=== PATIENT | male | born 1955 | race Caucasian/White ===

== ENCOUNTER 2019-12-01 16:58 | Inpatient (IN) | payer OTHER ==
[~2019-12-01] VITALS: Ht 172.7 cm; Wt 106.9 kg
[~2019-12-01 16:58] MED LIST changes: -METF500 PO; -METFORMIN HCL500 M2 PO; -PIOGLITAZONE HC15 MG PO; -ROSUVASTATIN CA10 MG PO; -TRULICITY1.5 MG/0.5 SQ
[2019-12-01] MEDS ORDERED: PIOGLITAZONE HC15 MG PO (19:04)
[2019-12-01] MEDS ORDERED: ROSUVASTATIN CA10 MG PO (19:04)
[2019-12-01] MEDS ORDERED: TRULICITY1.5 MG/0.5 SQ (19:05)
[2019-12-01] MEDS ORDERED: METF500 PO (19:06)
[2019-12-01] MEDS ORDERED: METFORMIN HCL500 M2 PO (19:07)
[2019-12-02 05:01] LABS: Hematocrit 39.8 % (37.0-53.0); Mean Corpuscular HGB 29.8 pg (26.0-34.0); Mean Corpuscular HGB Conc 32.7 g/dL (31.5-36.5); Mean Corpuscular Volume 91 fL (80-100); Mean Platelet Volume 11.6 fL (9.1-12.4); Platelet Count 141 K/mm3 (150-400); RDW Coefficient Variation 13.1 % (11.7-14.2); RDW Standard Deviation 43.4 fL (35.1-46.3); Red Blood Cell Count 4.36 M/mm3 (4.30-5.90); White Blood Cell Count 8.91 K/mm3 (4.00-11.30)
[2019-12-02 05:12] LABS: Alanine Aminotransfer (ALT/SGP 304 U/L (12-78); Albumin, Blood 2.5 g/dL (3.4-5.0); Albumin/Globulin Ratio 0.7 (0.8-1.8); Alk Phos 368 U/L (50-136); Anion Gap 8 mmol/L (6-16); Aspartate Aminotrans (AST/SGOT 132 U/L (12-37); Bilirubin, Total 3.6 mg/dL (0.1-1.0); Blood Urea Nitrogen 25 mg/dL (8-24); Bun/Creatinine Ratio 28.2 (12.0-20.0); CO2, Blood 25 mmol/L (21-32); Calcium, Blood 8.1 mg/dL (8.5-10.1); Chloride, Blood 105 mmol/L (98-108); Creatinine, Blood 0.89 mg/dL (0.60-1.20); Globulin, Blood 3.8 g/dL (2.2-4.0); Glomerular Filtration Rate >60 (60-); Glucose, Blood 209 mg/dL (70-99); Potassium, Blood 3.8 mmol/L (3.5-5.5); Sodium, Blood 138 mmol/L (136-145); Total Protein, Blood 6.3 g/dL (6.4-8.2)
--- NOTE | 2019-12-02 06:15 | NUR ---
SHIFT SUMMARY: DANIELA HAS RESTED INTERMITTENTLY SINCE HIS ADMISSION TO THE UNIT. HE DOES REPORT THAT HE HAS SLEEP APNEA AND USES A CPAP AT HOME. HE IS ALERT AND ORIENTED, ABLE TO MAKE HIS NEEDS KNOWN. HE REPORTS NOT HAVING EATEN FOR THE LAST TWO DAYS BUT DID DRINK SOME WATER. HE HAS BEEN NPO SINCE ADMISSION, MOUTH SWABS PROVIDED. IV TO RAC PATENT. , FAUSTINA, WILL RETURN IN THE MORNING. DANIELA IS PLEASANT AND COOPERATIVE. PAIN CONTROLLED AT THIS TIME. DANIELA IS INDEPENDENT IN THE ROOM BUT WAS ENCOURAGED TO CALL IF HE FELT AT ALL UNSTEADY OR REQUIRED ASSISTANCE WITH HIS IV POLE. HE REPORTS THAT HIS BLOOD SUGARS AT HOME RANGE FROM APPROX 140-180. HE IS RESTING COMFORTABLY IN BED WITH HIS CALL LIGHT IN REACH. WILL REPORT TO DAY SHIFT RN.
--- NOTE | 2019-12-02 10:34 | NUR ---
IMAGING: PT RETURNED FROM IMAGING TO ROOM. MRCP COMPLETED. WILL MONITOR RESULTS.
--- NOTE | 2019-12-02 11:34 | NUR ---
SURGERY: PT TO THE OR AT THIS TIME. AT BEDSIDE. SURGICAL PKT PLACED ON CHART. 18G IN PLACE. WILL MONITOR WHEN RETURNS TO ROOM POST OP.
--- NOTE | 2019-12-02 12:12 | NUR ---
LATE ENTY 1129 PT INTO [facility]. TRANSFERED VIA BED FROM [facility]. VSS. ROOM AIR. AT BEDSIDE. PT CONFIRMS NPO STATUS. Lungs clear T/O to Auscultation. History, Chart, Medications and Allergies reviewed before start of procedure.
--- NOTE | 2019-12-02 20:04 | NUR ---
PT HAD LAP BING THIS AFTERNOON. PT NAUSEATED POST OP BUT RESOLVING NOW. JOLANTA SIPS OF CLEARS. PAIN MANAGED WITH PRN FENTANYL. PT WALKING HALLWAYS OFTEN. NO FLATUS YET. VOIDING WELL. ANIL OUTPUT CHARTED. ABD INCISIONS X4 CDI. PT WEANED FROM O2 POST OP. PT USES CALL LIGHT APPROPRIATELY NEEDED.
--- NOTE | 2019-12-03 00:32 | NUR ---
CALLED HOSPITALIST CRISTA REGARDING CBG [id number] WITH COVERAGE A/C ONLY.NO INSULIN ORDERED. CBGS CHANGED TO A/C ONLY PER ORDER RECEIVED.
[2019-12-03 04:15] LABS: BASOPHILS ABSOLUTE AUTO 0.01 K/mm3 (0.00-0.23); BASOPHILS PERCENT AUTO 0 % (0-2); EOSINOPHILS PERCENT AUTO 0 % (0-6); Hematocrit 39.7 % (37.0-53.0); IMMATURE GRAN ABSOLUTE AUTO 0.06 K/mm3 (0.00-0.10); IMMATURE GRAN PERCENT AUTO 1 % (0-1); LYMPHOCYTES PERCENT AUTO 5 % (21-46); MONOCYTES ABSOLUTE AUTO 0.48 K/mm3 (0.16-1.47); MONOCYTES PERCENT AUTO 5 % (4-13); Mean Corpuscular HGB 30.1 pg (26.0-34.0); Mean Corpuscular HGB Conc 32.7 g/dL (31.5-36.5); Mean Corpuscular Volume 92 fL (80-100); Mean Platelet Volume 10.8 fL (9.1-12.4); NEUTROPHILS PERCENT AUTO 90 % (41-73); Platelet Count 207 K/mm3 (150-400); RDW Coefficient Variation 13.1 % (11.7-14.2); RDW Standard Deviation 43.9 fL (35.1-46.3); Red Blood Cell Count 4.32 M/mm3 (4.30-5.90); White Blood Cell Count 9.95 K/mm3 (4.00-11.30)
[2019-12-03 04:36] LABS: Alanine Aminotransfer (ALT/SGP 246 U/L (12-78); Albumin, Blood 2.7 g/dL (3.4-5.0); Albumin/Globulin Ratio 0.7 (0.8-1.8); Alk Phos 371 U/L (50-136); Anion Gap 13 mmol/L (6-16); Aspartate Aminotrans (AST/SGOT 79 U/L (12-37); Bilirubin, Total 1.4 mg/dL (0.1-1.0); Blood Urea Nitrogen 20 mg/dL (8-24); Bun/Creatinine Ratio 27.8 (12.0-20.0); CO2, Blood 19 mmol/L (21-32); Calcium, Blood 8.5 mg/dL (8.5-10.1); Chloride, Blood 106 mmol/L (98-108); Creatinine, Blood 0.72 mg/dL (0.60-1.20); Globulin, Blood 4.1 g/dL (2.2-4.0); Glomerular Filtration Rate >60 (60-); Glucose, Blood 276 mg/dL (70-99); Potassium, Blood 4.1 mmol/L (3.5-5.5); Sodium, Blood 138 mmol/L (136-145); Total Protein, Blood 6.8 g/dL (6.4-8.2)
--- NOTE | 2019-12-03 18:50 | NUR ---
SUMMARY: NO ACUTE CHANGE TODAY. VSS, A/O. INSULIN SS ADJUSTED TO HSS, SEE CBG'S. PT HAS MINIMAL PAIN, MEDICATED PER EMAR. ABLE TO SHOWER AND TAKE FREQUENT WALKS. SURGICAL SITES WNL. PT DENIES PASSING GAS, BOWEL TONES ARE ACTIVE. TOLERATING CLEAR LIQ DIET. NO ACUTE SAFETY CONCERNS AT THIS TIME. WILL CTM AND REPORT TO BRI EDWARD.
[2019-12-04 04:45] LABS: BASOPHILS ABSOLUTE AUTO 0.04 K/mm3 (0.00-0.23); BASOPHILS PERCENT AUTO 1 % (0-2); EOSINOPHILS ABSOLUTE AUTO 0.02 K/mm3 (0.00-0.68); EOSINOPHILS PERCENT AUTO 0 % (0-6); Hematocrit 36.3 % (37.0-53.0); Hemoglobin 11.8 g/dL (13.5-17.5); IMMATURE GRAN ABSOLUTE AUTO 0.07 K/mm3 (0.00-0.10); IMMATURE GRAN PERCENT AUTO 1 % (0-1); LYMPHOCYTES ABSOLUTE AUTO 1.15 K/mm3 (0.84-5.20); LYMPHOCYTES PERCENT AUTO 14 % (21-46); MONOCYTES ABSOLUTE AUTO 0.69 K/mm3 (0.16-1.47); MONOCYTES PERCENT AUTO 8 % (4-13); Mean Corpuscular HGB 30.1 pg (26.0-34.0); Mean Corpuscular HGB Conc 32.5 g/dL (31.5-36.5); Mean Corpuscular Volume 93 fL (80-100); Mean Platelet Volume 10.9 fL (9.1-12.4); NEUTROPHILS ABSOLUTE AUTO 6.22 K/mm3 (1.96-9.15); NEUTROPHILS PERCENT AUTO 76 % (41-73); Platelet Count 199 K/mm3 (150-400); RDW Coefficient Variation 13.2 % (11.7-14.2); RDW Standard Deviation 45.2 fL (35.1-46.3); Red Blood Cell Count 3.92 M/mm3 (4.30-5.90); White Blood Cell Count 8.19 K/mm3 (4.00-11.30)
[2019-12-04 05:05] LABS: Alanine Aminotransfer (ALT/SGP 139 U/L (12-78); Albumin, Blood 2.3 g/dL (3.4-5.0); Albumin/Globulin Ratio 0.6 (0.8-1.8); Alk Phos 260 U/L (50-136); Anion Gap 5 mmol/L (6-16); Aspartate Aminotrans (AST/SGOT 26 U/L (12-37); Blood Urea Nitrogen 15 mg/dL (8-24); Bun/Creatinine Ratio 21.4 (12.0-20.0); CO2, Blood 27 mmol/L (21-32); Chloride, Blood 106 mmol/L (98-108); Globulin, Blood 3.6 g/dL (2.2-4.0); Glomerular Filtration Rate >60 (60-); Glucose, Blood 251 mg/dL (70-99); Potassium, Blood 3.4 mmol/L (3.5-5.5); Sodium, Blood 138 mmol/L (136-145); Total Protein, Blood 5.9 g/dL (6.4-8.2)
--- NOTE | 2019-12-04 08:36 | NUR ---
SUMMARY PT REPORTED HAVING FORMED BM AT SHIFT CHANGE LAST NIGHT. TOLERATING PO FLUIDS AND MEDS WITHOUT C/O NAUSEA. IV IS SL. PT VOIDING BEST.
--- NOTE | 2019-12-04 09:02 | NUR ---
AMBULATING IN ROOM, REPORTS PAIN IS TOLERABLE AT 3/10 AT THIS TIME, DENIES ANY NAUSEA OR ABD DISCOMFORT AT THIS TIME, STATES TOLERATING CLEAR LIQUIDS WELL THIS AM, ANIL DRAIN NOTED W/ SEROUSANGUINOUS DRAINAGE, CONT. TO MONITOR FOR ANY CHANGES, ENCOURAGE TO AMBULATE IN HALLS.
--- NOTE | 2019-12-04 18:14 | NUR ---
SUMMARY OOB TO CHAIR, AMBULATED X3 DOWN THE HALLS, TOLERATED WELL, REPORTS TOLERATING DIET FAIRLY WELL, DENIES ANY NAUSEA, CONT. TO HAVE MILD ABD PAIN, RATES PAIN AT 2-3/10, MEDICATED FOR PAIN X1 TODAY, PASSING FLATUS, NO ACUTE CHANGES THIS SHIFT.
--- NOTE | 2019-12-05 05:35 | NUR ---
SUMMARY PT REPORTS ADEQUATE PAIN CONTROL. AMBULATORY. VOIDS DK BEST URINE. ENC INCREASE PO H2O INTAKE.HAS HAD BMS.
[2019-12-05] MEDS ORDERED: Norco 5-325 Ta1 EACH PO (12:34)
[2019-12-05] MEDS ORDERED: Augmentin 875-1 EACH PO (13:00)
[2019-12-05] MEDS ORDERED: METR500 PO (13:01)
--- NOTE | 2019-12-05 13:14 | NUR ---
DISCHARGE PT EDUCATED ON AND RECEIVED PRINTED DISCHARGE INSTRUCTIONS AND VERBALIZED AN UNDERSTANDING. IV DC'D. HARD RX FOR NORCO GIVEN TO PT. ABX FAXED TO [facility] PER REQUEST. PT WAITING FOR SPOUSE TO RETURN TO GO HOME.
--- NOTE | 2019-12-06 07:34 | NUR ---
12/06/19 0734 Nuvia Schumacher VERIFICATIONS: EDIT CHART.
== END 2019-12-05 13:50 | disposition home or self-care (01) | DRG 419 ==
LOC: ER 16:58 → SURS 22:59
PROVIDERS: Internal Medicine; Surgery; ADMIT Internal Medicine
PROC: BF03YZZ Plain Radiography of Gallbladder and Bile Ducts using Other Contrast (ICD-10-PCS; 2019-12-02)
PROC: 0FT44ZZ Resection of Gallbladder, Percutaneous Endoscopic Approach (ICD-10-PCS; principal; 2019-12-02 11:30)
DX: K81.0 Acute cholecystitis (principal); E78.5 Hyperlipidemia, unspecified; E87.6 Hypokalemia; E11.22 Type 2 diabetes mellitus with diabetic chronic kidney disease; E11.65 Type 2 diabetes mellitus with hyperglycemia; N18.3 Chronic kidney disease, stage 3 (moderate); I12.9 Hypertensive chronic kidney disease with stage 1 through stage 4 chronic kidney disease, or unspecified chronic kidney disease; G47.33 Obstructive sleep apnea (adult) (pediatric); E66.9 Obesity, unspecified; Z68.35 Body mass index [BMI] 35.0-35.9, adult; Z79.84 Long term (current) use of oral hypoglycemic drugs
CPT/HCPCS: 36415; 74018; 74181; 74300; 80053; 82947; 85025; 85027; 88304; 96361; 96365; 99284-25; A9270-GY; C1729; J0696; J1100; J1610; J1885; J2250; J2405; J2543; J2704; J2765; J3010; J7030; J7120

== ENCOUNTER → 2019-12-01 | Outpatient (CLI) | payer OTHER ==
[~2019-12-01] MED LIST: GLIP5 PO; METF500 PO; METFORMIN HCL500 M2 PO; PIOGLITAZONE HC15 MG PO; Percocet 5-3251 EACH PO; ROSUVASTATIN CA10 MG PO; TRULICITY1.5 MG/0.5 SQ
[2019-12-01 13:37] LABS: BASOPHILS ABSOLUTE AUTO 0.04 K/mm3 (0.00-0.23); BASOPHILS PERCENT AUTO 0 % (0-2); EOSINOPHILS ABSOLUTE AUTO 0.03 K/mm3 (0.00-0.68); EOSINOPHILS PERCENT AUTO 0 % (0-6); Hematocrit 39.5 % (37.0-53.0); Hemoglobin 13.3 g/dL (13.5-17.5); IMMATURE GRAN ABSOLUTE AUTO 0.14 K/mm3 (0.00-0.10); IMMATURE GRAN PERCENT AUTO 1 % (0-1); LYMPHOCYTES ABSOLUTE AUTO 0.58 K/mm3 (0.84-5.20); LYMPHOCYTES PERCENT AUTO 4 % (21-46); MONOCYTES ABSOLUTE AUTO 0.87 K/mm3 (0.16-1.47); MONOCYTES PERCENT AUTO 7 % (4-13); Mean Corpuscular HGB 30.4 pg (26.0-34.0); Mean Corpuscular HGB Conc 33.7 g/dL (31.5-36.5); Mean Corpuscular Volume 90 fL (80-100); Mean Platelet Volume 11.2 fL (9.1-12.4); NEUTROPHILS ABSOLUTE AUTO 11.75 K/mm3 (1.96-9.15); NEUTROPHILS PERCENT AUTO 88 % (41-73); Platelet Count 182 K/mm3 (150-400); RDW Coefficient Variation 13.1 % (11.7-14.2); RDW Standard Deviation 43.5 fL (35.1-46.3); Red Blood Cell Count 4.37 M/mm3 (4.30-5.90); White Blood Cell Count 13.41 K/mm3 (4.00-11.30)
[2019-12-01 13:55] LABS: Alanine Aminotransfer (ALT/SGP 442 U/L (12-78); Albumin, Blood 2.8 g/dL (3.4-5.0); Albumin/Globulin Ratio 0.6 (0.8-1.8); Alk Phos 441 U/L (40-126); Anion Gap 13 mmol/L (6-16); Aspartate Aminotrans (AST/SGOT 254 U/L (12-37); Bilirubin, Total 6.7 mg/dL (0.1-1.0); Blood Urea Nitrogen 30 mg/dL (8-24); Bun/Creatinine Ratio 18.6 (12.0-20.0); CO2, Blood 25 mmol/L (21-32); Calcium, Blood 8.6 mg/dL (8.5-10.1); Chloride, Blood 95 mmol/L (98-108); Creatinine, Blood 1.61 mg/dL (0.60-1.20); Globulin, Blood 4.4 g/dL (2.2-4.0); Glomerular Filtration Rate 43 (60-); Glucose, Blood 353 mg/dL (70-99); Sodium, Blood 133 mmol/L (136-145); Total Protein, Blood 7.2 g/dL (6.4-8.2)
[2019-12-01 14:08] LABS: Troponin I <0.017 ng/mL (0.000-0.040)
== END | disposition home or self-care (01) ==
LOC: LAB EV 13:31 → LAB SHORT 13:31
PROVIDERS: Physician Assistant
DX: R10.13 Epigastric pain (principal)
CPT/HCPCS: 80053; 82248; 83690; 84484; 85025

== ENCOUNTER 2023-01-22 10:13 | Day surgery (SDC) | payer MEDICARE, OTHER ==
[~2023-01-22] VITALS: Ht 172.7 cm; Wt 110.7 kg
[~2023-01-22 10:13] MED LIST changes: +Augmentin 875-1 EACH PO; +INSUGL100V SC; +METF500 PO; +METFORMIN HCL500 M2 PO; +METR500 PO; +NOVOLOG FL100 UNIT/3 SQ; +Norco 5-325 Ta1 EACH PO; +PIOGLITAZONE HC15 MG PO; +ROSUVASTATIN CA10 MG PO; +TRULICITY1.5 MG/0.5 SQ
--- NOTE | 2023-01-22 10:30 | NUR ---
History, Chart, Medications and Allergies reviewed before start of procedure.Patient confirms NPO status and agrees with scheduled surgery. Pre-Op teaching done. Pt verbalizes understanding. Patient States Post-Procedure ride home has been arranged.
--- NOTE | 2023-01-22 10:54 | NUR ---
Ambulatory in Day Surgery History, Chart, Medications and Allergies reviewed before start of procedure.Patient confirms NPO status and agrees with scheduled surgery. Lungs clear T/O to Auscultation.Patient states colon prep results clear. Patient States Post-Procedure ride home has been arranged WITH
--- NOTE | 2023-01-22 12:11 | NUR ---
01/22/23 1211 Apoorva Grover History, Chart, Medications and Allergies reviewed before start of procedure. DR WARD PROVIDING ANESTHESIA, SEE RECORDS
--- NOTE | 2023-01-22 12:49 | NUR ---
Patient up to Ambulate independently. Gait steady. Discharge instructions reviewed with patient. Patient verbalizes understanding. Copy given to patient to take home. Discharged via wheelchair to private car for ride home [facility] .
== END 2023-01-22 12:51 | disposition home or self-care (01) ==
LOC: ORSCMMR 10:13 → ORD 11:30 → ORSCMMR 12:51
PROVIDERS: Internal Medicine Gastroenterology
PROC: 0DBM8ZX Excision of Descending Colon, Via Natural or Artificial Opening Endoscopic, Diagnostic (ICD-10-PCS; principal; 2023-01-22 11:30)
PROC: 0DBH8ZX Excision of Cecum, Via Natural or Artificial Opening Endoscopic, Diagnostic (ICD-10-PCS; principal; 2023-01-22 11:30)
DX: Z12.11 Encounter for screening for malignant neoplasm of colon (principal); D12.4 Benign neoplasm of descending colon; D12.0 Benign neoplasm of cecum; G47.33 Obstructive sleep apnea (adult) (pediatric); E11.9 Type 2 diabetes mellitus without complications; Z79.899 Other long term (current) drug therapy; E66.9 Obesity, unspecified; Z68.37 Body mass index [BMI] 37.0-37.9, adult
CPT/HCPCS: 82947; 88305; J2405; J2704; J7120